=== PATIENT | male | born 1985 | race Caucasian/White ===

== ENCOUNTER 2017-10-02 20:43 | Emergency (ER) | payer OTHER ==
[2017-10-02 20:55] VITALS: RESP 16; TEMP 98.2
--- NOTE | 2017-10-02 21:06 | EDPHY ---
H & P Stated Complaint: INC DOSE RX, NOW RASH, FLU SX Time Seen by Provider: 10/02/17 21:01 - Personal History Current Tetanus Diphtheria and Acellular Pertussis (TDAP): Unsure - Medical/Surgical History Hx Asthma: No Hx Chronic Respiratory Disease: No Hx Diabetes: No Hx Cardiac Disease: No Hx Renal Disease: No Hx Cirrhosis: No Hx Alcoholism: No Hx HIV/AIDS: No Hx Splenectomy or Spleen Trauma: No Other PMH: BIPOLAR - Social History Smoking Status: Light smoker Constitutional: Initial Vital Signs Temperature (C) 36.8 C 10/02/17 20:52 Heart Rate 86 10/02/17 20:52 Respiratory Rate 16 10/02/17 20:52 Blood Pressure 118/79 10/02/17 20:52 O2 Sat (%) 95 10/02/17 20:52 O2 Delivery Mode Room Air Allergies/Adverse Reactions: No Known Allergies Allergy (Unverified 10/02/17 20:51) Home Medications: Medication Instructions Recorded GABAPENTIN 10/02/17 LAMOTRIGINE 10/02/17 predniSONE 40 mg PO DAILY #6 tab 10/02/17 Medical Decision Making ED Course/Re-evaluation: CHIEF COMPLAINT: Fever, rash after increasing Lamictal HISTORY OF PRESENT ILLNESS: The patient is a 32 y/o male with a history of bipolar disorder complaining of a fever and rash after increasing his Lamictal, which he has been taking for 2 years. He has been taking Lamictal for his bipolar disorder. He tried increasing the dosage before, but developed flu like symptoms. Today he increased the dosage from 200mg to 300mg. While in the ED his rash has decreased mildly. REVIEW OF SYSTEMS: A 10 point review of systems was performed and is negative with the exception of the elements mentioned in the history of present illness. PHYSICAL EXAM: HR, BP, O2 Sat, RR. Temp noted General Appearance: Alert, well hydrated, appropriate, and non-toxic appearing. Head: Atraumatic without scalp tenderness or obvious injury Eyes: Pupils equal, round, reactive to light and accommodation, EOMI, no trauma , no injection. Ears: Clear bilaterally, no perforation, normal landmarks Nose: Atraumatic, no rhinorrhea, clear. Throat: Mucus membranes moist. Tongue normal. Uvula normal. Neck: Supple, nontender, no lymphadenopathy. Respiratory: No retractions, no distress, no wheezes, and no accessory muscle use. Lungs are clear to auscultation bilaterally. Cardiovascular: Regular rate and rhythm, no murmurs, rubs, or gallops. Good capillary refill all extremities. Gastrointestinal: Abdomen is soft, nontender, non-distended, no masses, no rebound, no guarding, no peritoneal signs. Musculoskeletal: Normal active ROM of all extremities, atraumatic. Neurological: Alert, appropriate, and interactive. Nonfocal neuro. Skin: 2 minor resolving hives on his left arm and chest. Good turgor, no nodules on palpation. Past medical history: Bipolar disorder Past surgical history: Denies Family history: Noncontributory Social history: Friend at bedside, lives in [place], single, works for [employer] DIFFERENTIAL DIAGNOSIS: The differential diagnosis for the patient's fever and rash included but was not limited to Lamictal rash, pneumonia, urinary tract infection, viral syndrome , meningitis, and sepsis. MEDICAL DECISION MAKING: The patient is a 32 y/o male with a history of bipolar disorder presenting with 2 minor resolving hives on his left arm and chest after increasing his Lamictal dosage from 200mg to 300mg. There is no evidence of an allergic reaction besides the two areas of rash. I do not suspect he has Sea's-Sharif's syndrome. 40mg PO Prednisone administered. Reassessed patient, I have advised him to decrease his Lamictal dosage as well as follow up with his psychiatrist in the next week. I have also prescribed him a 3 day course of Prednisone. Return precautions provided; patient is comfortable with this plan. Departure - Departure Disposition: Home, Routine, Self-Care Clinical Impression: Rash Condition: Good Instructions: Acute Rash (ED) Additional Instructions: 1. Take Prednisone as prescribed. 2. Decrease your Lamictal dosage to 200mg. 3. Follow up with your psychiatrist without fail in the next week. 4. Return to the Emergency Department for shortness of breath, difficulty swallowing, difficulty breathing, worsening of rash, fever or other worsening of condition. Referrals: Randal Mixon [Other] - As per Instructions [facility],. [Clinic] - As per Instructions Prescriptions: predniSONE 40 mg PO DAILY #6 tab Report Scribed for: Rory Calderon Report Scribed by: Laura Jose Date of Report: 10/02/17 Time of Report: 21:05
[2017-10-02] MEDS ORDERED: predniSONE 20 MG TAB PO ONE (21:55)
[2017-10-02 22:17] VITALS: BP 118/73; PULSE 82; O2SAT 94
== END 2017-10-02 22:16 | disposition home or self-care (01) ==
DX: R21 Rash and other nonspecific skin eruption (principal); F17.200 Nicotine dependence, unspecified, uncomplicated
CPT/HCPCS: J7512